=== PATIENT | female | born 1960 | race Caucasian/White ===

== ENCOUNTER 2022-02-01 16:55 | Emergency (ER) | payer OTHER ==
[2022-02-01] MEDS ORDERED: Meclizine 12.5 MG Tab PO ONE (18:10)
== END 2022-02-01 19:13 | disposition home or self-care (01) ==
LOC: JD.ED 16:55
DX: R42 Dizziness and giddiness (principal); I10 Essential (primary) hypertension; Z91.041 Radiographic dye allergy status
CPT/HCPCS: 99283; A9270